=== PATIENT | female | born 1955 | race Caucasian/White ===

== ENCOUNTER 2018-01-13 08:52 | Emergency (ER) | payer MEDICARE, BC ==
[2014-03-27 14:11] VITALS: BMI 36.6
[~2018-01-13 08:52] MED LIST: AMITRIPTYLINE100 MG PO; GABAPENTIN100 MG PO; GLUCOPHAGE1000 MG PO; LANOXIN125 MCG PO; LEVOXYL100 MCG PO; LIORESAL 10 MG10 MG; ONGLYZA5 MG PO; PROZAC40 MG PO; VERELAN120 MG PO; ZANTAC150 MG PO; ZOCOR40 MG PO
== END 2018-01-13 09:45 | disposition home or self-care (01) ==
LOC: D.ER 08:52
DX: S05.02XA Injury of conjunctiva and corneal abrasion without foreign body, left eye, initial encounter (principal); W50.4XXA Accidental scratch by another person, initial encounter; Y93.89 Activity, other specified; Y92.019 Unspecified place in single-family (private) house as the place of occurrence of the external cause; E11.9 Type 2 diabetes mellitus without complications; I10 Essential (primary) hypertension; K21.9 Gastro-esophageal reflux disease without esophagitis